=== PATIENT | male | born 1980 | race Two or more races ===

== ENCOUNTER 2022-06-25 08:31 | Emergency (ER) ==
[2022-06-25] MEDS ORDERED: Indomethacin 25 MG Cap PO ONE (08:47)
[2022-06-25] MEDS ORDERED: predniSONE 10 MG Tab PO ONE (08:47)
== END 2022-06-25 09:21 ==
LOC: MW.ED 08:31
DX: M25.572 Pain in left ankle and joints of left foot (principal); M79.675 Pain in left toe(s); M79.674 Pain in right toe(s)
CPT/HCPCS: 99283; A9270

== ENCOUNTER 2022-08-06 18:46 | Emergency (ER) | payer BC | END 2022-08-06 21:27 | disposition home or self-care (01) | LOC: MW.ED 18:46 | DX: M10.9 Gout, unspecified (principal) | CPT/HCPCS: 99283 ==